=== PATIENT | female | born 2000 | race Caucasian/White ===

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

== ENCOUNTER 2021-07-26 12:00 | Inpatient (IN) ==
[2021-08-05] MEDS ORDERED: OXYTOCIN/RINGERS LACTATE 10 UNIT/166.6 ML BAG IVC ONE ×2 (09:13→13:41)
[2021-08-05] MEDS ORDERED: CeFAZolin 2,000 MG/120 ML BAG IVPB ONE (09:13)
[2021-08-05] MEDS ORDERED: Famotidine 20 MG/2 ML VIAL IVP ONE (09:13)
[2021-08-05] MEDS ORDERED: Metoclopramide 10 MG/2 ML VIAL IVP ONE (09:13)
[2021-08-05] MEDS ORDERED: Ringers Solution, Lactated 1,000 ML IVC ONE (09:13)
[2021-08-05] MEDS ORDERED: Ringers Solution, Lactated 1,000 ML IVC SCH ×3 (09:15→13:41)
[2021-08-05 10:24] LABS: Amphetamine Screen,Urine Negative ng/mL (Cutoff=1000); Barbiturate Screen,Urine Negative ng/mL (Cutoff=200); Benzodiazepines Screen,Urine Negative ng/mL (Cutoff=200); Cannabinoid Screen,Urine Negative ng/mL (Cutoff = 50); Cocaine Screen,Urine Negative ng/mL (Cutoff= 300); Opiate Screen,Urine Negative ng/mL (Cutoff=300); Phencyclidine Screen,Urine Negative ng/mL (Cutoff=25)
[2021-08-05 10:34] LABS: Basophils % 0.4 %; Eosinophils # 0.4 K/mcL (0.0-0.6); Hematocrit 33.8 % (35.3-44.9); Hemoglobin 10.9 g/dL (11.5-15.4); Immature Granulocytes % 0.5 % (0-4); Lymphocytes # 2.2 K/mcL (0.6-4.6); Lymphocytes % 19.9 %; Mean Corpuscular HGB Conc 32.2 g/dL (31.6-35.5); Mean Corpuscular Hemoglobin 29.3 pg (28.0-33.3); Mean Corpuscular Volume 90.9 fL (83.0-100.0); Mean Platelet Volume 10.1 fL (9.4-12.4); Monocytes # 1.1 K/mcL (0.0-1.3); Monocytes % 10.2 %; Neutrophils # 7.2 K/mcL (1.6-8.9); Platelet Count 262 K/mcL (140-400); Red Blood Count 3.72 M/mcL (3.82-4.97); Red Cell Distribution Width 14.9 % (11.5-14.5)
[2021-08-05] MEDS ORDERED: EPHEDrine 50 MG/ML VIAL ONE (10:46)
[2021-08-05] MEDS ORDERED: *HR* FentaNYL (PF) 100 MCG/2 ML VIAL ONE (10:46)
[2021-08-05] MEDS ORDERED: Ketorolac 30 MG/ML VIAL ONE (10:46)
[2021-08-05] MEDS ORDERED: Acetaminophen IV 1,000 MG/100 ML BAG IVPB ONE (10:46)
[2021-08-05] MEDS ORDERED: *HR* Morphine Sulfate/PF 10 MG/10 ML AMPUL ONE (10:46)
[2021-08-05] MEDS ORDERED: Ondansetron 4 MG/2 ML VIAL ONE (10:46)
[2021-08-05 10:49] LABS: Influenza A PCR Negative (Negative); Influenza B PCR Negative (Negative); Resp. Syncytial Virus PCR Negative (Negative)
[2021-08-05 10:50] LABS: SARS-CoV-2 by PCR (In House) Positive (Negative)
[2021-08-05] MEDS ORDERED: *HR* Labetalol 20 MG/4 ML SYRINGE IVP PRN (11:15)
[2021-08-05] MEDS ORDERED: Ondansetron 4 MG/2 ML VIAL IVP PRN ×2 (11:15→13:41)
[2021-08-05] MEDS ORDERED: *HR* HYDROmorphone PF 0.5 MG/0.5 ML SYRINGE IVP PRN (11:15)
[2021-08-05] MEDS ORDERED: *HR* Midazolam HCl 2 MG/2 ML VIAL ONE (11:18)
[2021-08-05] MEDS ORDERED: Ringers Solution, Lactated 1,000 ML ONE (11:55)
[2021-08-05] MEDS: Oxytocin 30 UNIT/503 ML BAG IVC SCH ×2 (11:58→12:28)
[2021-08-05] MEDS ORDERED: Metoclopramide 10 MG/2 ML VIAL IVP PRN (13:41)
[2021-08-05] MEDS ORDERED: Rho Immune Globulin 1,500 UNIT SYRINGE IM ONE (13:41)
[2021-08-05] MEDS: Ibuprofen 600 MG TABLET PO SCH (21:39)
[2021-08-05] MEDS: Acetaminophen 325 MG TABLET PO SCH (21:39)
[2021-08-05] MEDS: Simethicone 80 MG TAB.CHEW PO PRN (21:39)
[2021-08-05] MEDS: cephALEXin 500 MG CAPSULE PO SCH (21:40)
[2021-08-06 03:58] VITALS: PULSE 86; O2SAT 97
[2021-08-06] MEDS: Ibuprofen 600 MG TABLET PO SCH ×2 (03:59→10:53)
[2021-08-06] MEDS: Acetaminophen 325 MG TABLET PO SCH ×2 (03:59→10:54)
[2021-08-06 04:42] LABS: Basophils % 0.2 %; Eosinophils # 0.1 K/mcL (0.0-0.6); Eosinophils % 0.5 %; Hematocrit 27.6 % (35.3-44.9); Immature Granulocytes % 0.3 % (0-4); Mean Corpuscular HGB Conc 32.2 g/dL (31.6-35.5); Mean Corpuscular Hemoglobin 29.8 pg (28.0-33.3); Mean Corpuscular Volume 92.3 fL (83.0-100.0); Monocytes # 1.1 K/mcL (0.0-1.3); Monocytes % 8.5 %; Neutrophils # 9.3 K/mcL (1.6-8.9); Platelet Count 221 K/mcL (140-400); Red Blood Count 2.99 M/mcL (3.82-4.97); Red Cell Distribution Width 14.9 % (11.5-14.5); Segmented Neutrophils % 74.5 %; White Blood Count 12.5 K/mcL (4.3-11.1)
[2021-08-06 04:43] LABS: Hemoglobin 8.9 g/dL (11.5-15.4)
[2021-08-06] MEDS: *HR* OxyCODONE Immed Rel 5 MG TABLET PO PRN ×2 (06:52→11:26)
[2021-08-06] MEDS: Simethicone 80 MG TAB.CHEW PO PRN (06:52)
[2021-08-06 06:58] VITALS: BP 106/72; TEMP 97.3
[2021-08-06] MEDS ORDERED: Prenatal Vit/FA 1 EACH TABLET PO SCH (09:00)
[2021-08-06] MEDS: cephALEXin 500 MG CAPSULE PO SCH (09:14)
== END 2021-08-06 14:07 | disposition home or self-care (01) | DRG 540 ==
LOC: 1NENULAB 08-05 08:53 → 1NENUOBS 08-05 14:37
PROVIDERS: ADMIT Student in an Organized Health Care Education/Training Program; ATTEND Student in an Organized Health Care Education/Training Program